=== PATIENT | male | born 1960 | race Asian ===

== ENCOUNTER 2017-03-12 10:58 | Emergency (ER) | payer MEDICAID ==
[~2017-03-12] VITALS: Ht 162.6 cm; Wt 67.0 kg
[~2017-03-12 10:58] MED LIST: IBUP400T20 PO
[2017-03-12 11:04] VITALS: BP 141/74; PULSE 60; RESP 16; TEMP 97.7; O2SAT 97
--- NOTE | 2017-03-12 11:11 | PD ---
HPI Chief Complaint: Musculoskeletal Complaint Time Seen by Provider: 11:10 Travel History International Travel<30 days: No Contact w/Intl Traveler<30days: No Traveled to known affect area: No History of Present Illness HPI This is a 56-year-old male who presents for evaluation of lower back pain. Symptoms started 3 weeks ago. The pain is a sharp shooting pain that radiates down the anterior left thigh. The pain is worse with certain movements at the torso. He has tried using [id number] topical analgesic medication with no relief. He denies any trauma. He does not recall any strenuous exercise or heavy lifting. He denies dysuria, hematuria, abdominal pain, nausea or vomiting , bowel or bladder incontinence. He has never had this problem before. He has no other complaints at this time. [facility] Past Medical History Diminished Hearing: No Immunizations Current: Yes Social History Alcohol Use: No Tobacco Use: No Substance Use: No Allergies-Medications (Allergen,Severity, Reaction): Coded Allergies: aspirin (Unverified Allergy, Severe, 03/12/17) Reported Meds & Prescriptions Reported Meds & Active Scripts Active Lidocaine Patch 12 HR (Lidocaine) 5 % Patch 1 Patch TOPICAL DAILY PRN Remove patch after 12 hours Baclofen 10 Mg Tab 10 Mg PO Q8HR PRN 10 Days Prednisone 20 Mg Tab 20 Mg PO BID 5 Days Review of Systems Except as stated in HPI: all other systems reviewed are Neg Physical Exam Narrative GENERAL: Well-developed well-nourished male in no acute distress ambulatory in the ED. SKIN: Warm and dry. There is no rash. No flank or periumbilical ecchymosis. HEAD: Atraumatic. Normocephalic. EYES: Pupils equal and round. No scleral icterus. No injection or drainage. ENT: No nasal bleeding or discharge. Mucous membranes pink and moist. NECK: Trachea midline. No JVD. CARDIOVASCULAR: Regular rate and rhythm. No murmur appreciated. RESPIRATORY: No accessory muscle use. Clear to auscultation. Breath sounds equal bilaterally. GASTROINTESTINAL: Abdomen soft, non-tender, nondistended. Hepatic and splenic margins not palpable. MUSCULOSKELETAL: No obvious deformities. There is some tenderness to palpation to the left proximal gluteal musculature. There is no tenderness to palpation along the thoracic or lumbar midline spine. No CVA tenderness. 5 out of 5 muscle strength dorsi and plantar flexion, leg flexion and extension, hip flexion bilaterally. Bounding 2+ dorsalis pedis/posterior tibial pulses bilaterally. No lower extremity edema. NEUROLOGICAL: Awake and alert. No obvious cranial nerve deficits. Motor grossly within normal limits. Normal speech. Data Data Last Documented VS Vital Signs Date Time Temp Pulse Resp B/P (MAP) Pulse Ox O2 Delivery O2 Flow Rate FiO2 03/12/17 11:04 97.7 60 16 141/74 (96) 97 Orders Orders Spine, Lumbar - Ltd (Ap & Lat) (03/12/17 ) [facility] Medical Decision Making Medical Screen Exam Complete: Yes Emergency Medical Condition: Yes Medical Record Reviewed: Yes Differential Diagnosis Herniated nucleus pulposus, piriformis syndrome, muscle spasm, intermittent claudication, compression fracture, spinal stenosis, AAA, ureteral stone Narrative Course 56-year-old male who has been expressing lower back pain that radiates down the anterior left thigh for the past 3 weeks. On examination he has some tenderness to palpation in the left upper gluteal musculature. Physical examination is otherwise unremarkable reassuring. I suspect a herniated disc as the likely etiology. The patient was insistent on x-ray imaging and therefore an x-ray of the lumbar spine was performed and this revealed degenerative changes with no acute findings. The patient does have an allergy to aspirin and he believes that he is allergic to most NSAIDs and therefore NSAIDs will be avoided. He will be discharged with a short course of prednisone , baclofen and Lidoderm patches. Recommended follow-up with primary care physician in 2 weeks. Diagnosis Primary Impression: Lumbosacral radiculopathy Additional Instructions: Medication as needed. Do not drive or drink alcohol when taking baclofen as it May cause sedation. Avoid strenuous activity, heavy lifting. Follow-up with primary care physician in 2 weeks for recheck. Return for any emergent medical conditions. Med/Other Pt SpecificInfo: Prescription(s) given Scripts Lidocaine Patch 12 HR (Lidocaine Patch 12 HR) 5 % Patch 1 PATCH TOPICAL DAILY Y for PAIN, #1 BOX 1 Refill Remove patch after 12 hours Prov: Kenneth Mendez MD 03/12/17 Baclofen (Baclofen) 10 Mg Tab 10 MG PO Q8HR Y for MUSCLE SPASM for 10 Days, TAB 0 Refills Prov: Kenneth Mendez MD 03/12/17 Prednisone (Prednisone) 20 Mg Tab 20 MG PO BID for 5 Days, #10 TAB 0 Refills Prov: Kneneth Mendez MD 03/12/17 Disposition: 01 DISCHARGE HOME Condition: Stable Tacho Rosales Mar 12, 2017 11:11
--- NOTE | 2017-03-12 11:46 | RADRPT ---
EXAM DATE/TIME: 03/12/2017 11:29 [place] COMPARISON: No previous studies available for comparison. INDICATIONS : Low back pain, no known injury. MEDICAL HISTORY : None. SURGICAL HISTORY : None. ENCOUNTER: Initial ACUITY: 3 weeks PAIN SCORE: 8/10 LOCATION: Bilateral low back FINDINGS: There are degenerative changes at L3-4, L4-5 and L5-S1 worse at L4-5. SI joints are normal. CONCLUSION: Degenerative changes as described above. Salvador Rosas MD FACR on March 12, 2017 at 11:38 Board Certified Radiologist. This report was verified electronically.
[2017-03-12] MEDS ORDERED: LIDO1PAD52 TOPICAL (11:58)
[2017-03-12] MEDS ORDERED: PRED20 PO (11:58)
[2017-03-12] MEDS ORDERED: BACL10TA PO (11:58)
== END 2017-03-12 12:07 | disposition home or self-care (01) ==
LOC: PHEFT 10:58
DX: M54.17 Radiculopathy, lumbosacral region (principal)
CPT/HCPCS: 72100; 99284